=== PATIENT | male | born 1975 | race African-American/Black ===

== ENCOUNTER 2023-10-14 14:58 | Emergency (ER) | payer OTHER ==
[2023-10-14 15:05] VITALS: TEMP 98.3; BMI 28.0
[2023-10-14 15:42] LABS: BASO % 0.4 % (0-2.0); EOS % 0.7 % (0-4.5); HEMATOCRIT 48.1 % (35.4-49); HEMOGLOBIN 16.3 GM/dL (11.7-16.9); MCH 30.4 pg (25.7-33.7); MCHC 33.8 g/dl (32.0-35.9); MEAN PLT VOLUME 8.7 fl (7.5-11.1); NEUT % 65.9 % (42.8-82.8); PLATELET COUNT 199 10^3/uL (134-434); RBC 5.35 M/mm3 (4.00-5.60); RDW 15.6 % (11.9-15.9); WHITE BLOOD COUNT 8.7 K/mm3 (4.0-10.0)
[2023-10-14 15:50] LABS: INR 1.19 (0.83-1.09); PROTHROMBIN TIME (PATIENT) 13.8 SEC (9.7-13.0)
[2023-10-14 15:53] LABS: ACTIVATED PTT 28.6 SECONDS (25.2-36.5)
[2023-10-14 15:57] LABS: POTASSIUM 3.8 mmol/L (3.5-5.1)
[2023-10-14 15:59] LABS: ALBUMIN 3.3 g/dl (3.4-5.0); BLOOD UREA NITROGEN 10.2 mg/dL (7-18); CALCIUM 8.9 mg/dL (8.5-10.1)
[2023-10-14 16:03] LABS: CREATININE 1.1 mg/dL (0.55-1.3)
[2023-10-14 16:04] LABS: TOT PROT 6.7 g/dl (6.4-8.2)
[2023-10-14] MEDS ORDERED: HEPARIN NA (PORCINE) 5,000 UNITS/ML 1ML VIAL IVPUSH PRN ×4 (16:40→16:49)
[2023-10-14] MEDS ORDERED: HEPARIN INFUSION - 25,000 UNITS/500 ML INFUS.BAG IVPB SCH (16:47)
[2023-10-14] MEDS: HEPARIN NA (PORCINE) 5,000 UNITS/ML 1ML VIAL IVPUSH ONE ×2 (16:48→17:10)
[2023-10-14] MEDS: HEPARIN INFUSION - 25,000 UNITS/500 ML INFUS.BAG IVPB SCH ×2 (16:48→17:11)
[2023-10-14] MEDS ORDERED: HEPARIN NA (PORCINE) 5,000 UNITS/ML 1ML VIAL ONE (16:55)
[2023-10-14] MEDS ORDERED: HEPARIN INFUSION - 25,000 UNITS/500 ML INFUS.BAG IVPB ONE (16:56)
[2023-10-14 20:04] VITALS: BP 152/106; PULSE 96; RESP 18
== END 2023-10-14 20:15 | disposition short-term general hospital (02) ==
LOC: JER 14:58
PROC: 3E033GC Introduction of Other Therapeutic Substance into Peripheral Vein, Percutaneous Approach (ICD-10-PCS; principal; 2023-10-14)
DX: R10.13 Epigastric pain (principal); R06.02 Shortness of breath; R00.0 Tachycardia, unspecified; I26.09 Other pulmonary embolism with acute cor pulmonale; R07.89 Other chest pain; Z20.822 Contact with and (suspected) exposure to COVID-19
CPT/HCPCS: 0241U-QW; 36415; 71045-TC-FY; 71275-TC; 80053; 83880; 84484; 85025; 85610; 85730; 86850; 86900; 86901; 93005; 93010; 93970-TC; 99285-25; J1644